=== PATIENT | female | born 1995 | race Caucasian/White ===

== ENCOUNTER 2024-10-15 21:32 | Emergency (ER) | payer OTHER, SELFPAY ==
--- NOTE | ~2024-10-15 | XR_ITS ---
CHEST RADIOGRAPH CLINICAL HISTORY: shortness of breath . COMPARISON: None available TECHNIQUE: Single portable view of the chest. FINDINGS The cardiomediastinal silhouette is unremarkable. Peribronchial thickening is identified. The lungs are otherwise clear. Visualized osseous structures and soft tissues are unremarkable. IMPRESSION: Peribronchial thickening, without focal infiltrate or effusion. Reviewed, dictated and finalized at location A. IN [place]
[2024-10-15 21:35] VITALS: BP 118/72; PULSE 90; RESP 15; O2SAT 100
--- NOTE | 2024-10-15 21:45 | ECG_ITS ---
Test Date: 2024-10-15 21:48:57 Measurements Intervals [place] Rate: 94 P: 147 AR: 124 QRS: 138 QRSD: 81 T: 151 QT: 314 QTc: 393 Interpretive Statements SINUS RHYTHM LEFT POSTERIOR FASCICULAR BLOCK [QRS AXIS > 109, INFERIOR Q] No previous ECG available for comparison Electronically Signed On 10-17-2024 08:58:05 EDITING INTERN by Eder Rascon M.D.
[2024-10-15 21:57] VITALS: PULSE 105; RESP 16
[2024-10-15] MEDS: IPRATROPIUM 0.5 MG/ALBUTEROL SULFATE 2.5 MG AMPUL.NEB 3 ML INHALATION (21:57)
[2024-10-15 22:02] VITALS: PULSE 94; RESP 16
[2024-10-15 22:05] LABS: Basophils Percent Auto 0.4 % (0.2-1.2); Eosinophils Absolute Auto 0.1 K/mm3 (0-0.3); Eosinophils Percent Auto 1.6 % (0-4.4); Hematocrit 36.7 % (37.0-47.0); Hemoglobin 12.7 g/dL (12.0-15.0); Immature Granulocyte Absolute 0.13 K/mm3 (0.00-0.031); Immature Granulocyte Percent A 1.9 % (0-0.5); Lymphocytes Absolute Auto 1.58 K/mm3 (0.9-3.2); Lymphocytes Percent Auto 22.8 % (18.3-44.2); Mean Corpuscular HGB Conc 34.6 g/dl (32-36); Mean Corpuscular Hemoglobin 31.8 pg (26-34); Mean Corpuscular Volume 91.8 fl (80-100); Mean Platelet Volume 9.6 fl (7.4-10.4); Monocytes Absolute Auto 0.7 K/mm3 (0.1-0.6); Monocytes Percent Auto 9.8 % (2.6-8.5); Neutrophils Absolute Auto 4.4 K/mm3 (1.3-6.7); Neutrophils Percent Auto 63.5 % (45.5-73.1); Platelet Count Result 277 k/mm3 (150-375); White Blood Count 6.9 K/mm3 (4.5-10.0)
[2024-10-15] MEDS: SODIUM CHLORIDE 0.9% IV 1,000 ML 999 ML IV CONT (22:05)
[2024-10-15] MEDS: methylPREDNISolone SOD SUCC 125 MG VIAL IV PUSH (22:05)
[2024-10-15 22:18] LABS: Lactic Acid Reflex 0.8 mmol/L (0.7-2.0)
[2024-10-15 22:19] LABS: Alanine Aminotransferase 20 U/L (6-35); Albumin Level 3.7 g/dL (3.5-5.1); Alkaline Phosphatase 107 U/L (38-126); Anion Gap 4 mmol/L (4-12); Aspartate Amino Transferase 24 U/L (14-36); Bilirubin,Total 0.4 mg/dL (0.2-1.3); Blood Urea Nitrogen 10 mg/dL (7-17); Calcium 9.1 mg/dL (8.4-10.2); Carbon Dioxide 25 mmol/L (22-30); Chloride 105 mmol/L (98-107); Estimated CRCL calculation 141 ml/min; Estimated Glomerular Filt Rate > 60; Glucose 92 mg/dL (65-110); Magnesium 1.8 mg/dL (1.6-2.3); Potassium 3.4 mmol/L (3.4-5.0); Sodium 134 mmol/L (137-145)
[2024-10-15 22:29] LABS: NT Pro B Type Natriuretic Pept 78 pg/mL (19.9-100); Strep Group A RT-PCR NOT DETECTED (Negative); Troponin I < 0.012 ng/mL (0.000-0.034)
[2024-10-15 22:41] LABS: Influenza A QL RT-PCR Positive (Negative); Influenza B QL RT-PCR Negative (Negative); RSV RNA, RT-PCR Negative (Negative); SARS-CoV-2 RNA PCR Negative (Negative)
--- NOTE | 2024-10-15 23:22 | ED_ITS ---
HPI - General Adult General Chief complaint: Shortness of Breath/Dyspnea Stated complaint: SOB Time Seen by Provider: 10/15/24 21:33 History of Present Illness HPI narrative: Patient 29-year-old female who presents emergency department with chief complaint of sore throat cough and shortness of breath. The patient reports that since the she has been having discomfort and cough the patient reports that she has taken Tylenol and reports that she lost her voice about 7 days ago the patient states she felt as though her throat was constricting the patient reports he is 29 weeks the patient states she has had no abdominal pain no loss of fluid Patient reports she felt as though she was wheezing using extra muscles whenever she was breathing Related Data Allergies Allergy/AdvReac Type Severity Reaction Status Date / Time No Known Allergies Allergy Verified 10/15/24 21:59 Review of Systems 2 Review of Systems: A 10 system review of systems was completed on the patient and is negative except for what is stated in the HPI. Nursing and ancillary documentation was reviewed. Exam 2 Narrative: GENERAL: Well-appearing, well-nourished, and in no acute distress. HEAD: Normocephalic, atraumatic. EYES: PERRLA and EOMI. ENT: Nares clear, no rhinorrhea or epistaxis. Mucous membranes moist. NECK: Supple. CHEST: Wheezing to auscultation. Mild respiratory distress. HEART: Regular rate and rhythm. No murmur heard. Normal peripheral pulses. ABDOMEN: Soft, nontender, nondistended, normal active bowel sounds. EXTREMITIES: Normal range of motion. No edema. SKIN: Warm, dry, no rash. NEURO: No focal deficits. Alert and oriented x3. PSYCH: Normal mood and affect. Course Vital Signs Vital signs: Vital Signs Pulse Rate 90 10/15/24 21:35 Respiratory Rate 15 10/15/24 21:35 Blood Pressure 118/72 10/15/24 21:35 Pulse Oximetry 100 10/15/24 21:35 Oxygen Delivery Room Air 10/15/24 21:35 Pulse Rate 94 10/15/24 22:02 Respiratory Rate 16 10/15/24 22:02 Blood Pressure 118/72 10/15/24 21:35 Pulse Oximetry 100 10/15/24 21:35 Oxygen Delivery Room Air 10/15/24 21:35 Medical Decision Making [facility] Narrative Medical decision making narrative: Differential diagnosis includes mono, strep, COVID, influenza, pneumonia, bronchospasm The patient was given IV steroids in the emergency department also given breathing treatments. Patient is feeling much better at this time The patient was positive for influenza A given the length of time that was discussed risk and benefits of Tamiflu the patient has decided that she would take a prescription for Tamiflu also patient will be started on a pulse dose steroids and given a prescription for an inhaler. Vital Signs Vital Signs: Vital Signs Pulse Rate 90 10/15/24 21:35 Respiratory Rate 15 10/15/24 21:35 Blood Pressure 118/72 10/15/24 21:35 Pulse Oximetry 100 10/15/24 21:35 Oxygen Delivery Room Air 10/15/24 21:35 Pulse Rate 94 10/15/24 22:02 Respiratory Rate 16 10/15/24 22:02 Blood Pressure 118/72 10/15/24 21:35 Pulse Oximetry 100 10/15/24 21:35 Oxygen Delivery Room Air 10/15/24 21:35 Lab Data 10/15/24 21:58 10/15/24 21:58 Labs: Lab Results 10/15/24 10/15/24 10/15/24 Range/Units 21:58 21:58 21:58 WBC 6.9 (4.5-10.0) K/mm3 RBC 4.00 L (4.2-5.4) M/mm3 Hgb 12.7 (12.0-15.0) g/dL Hct 36.7 L (37.0-47.0) % MCV 91.8 (80-100) fl MCH 31.8 (26-34) pg MCHC 34.6 (32-36) g/dl RDW 12.0 (11.5-14.5) % Plt Count 277 (150-375) k/mm3 MPV 9.6 (7.4-10.4) fl Immature Gran % (Auto) 1.9 H (0-0.5) % Neut % (Auto) 63.5 (45.5-73.1) % Lymph % (Auto) 22.8 (18.3-44.2) % [place] % (Auto) 9.8 H (2.6-8.5) % Eos % (Auto) 1.6 (0-4.4) % Baso % (Auto) 0.4 (0.2-1.2) % Lymph # (Auto) 1.58 (0.9-3.2) K/mm3 [place] # (Auto) 0.7 H (0.1-0.6) K/mm3 Eos # (Auto) 0.1 (0-0.3) K/mm3 Baso # (Auto) 0.0 (0.0-0.1) K/mm3 Abs Immat Gran (auto) 0.13 H (0.00-0.031) K/mm3 Absolute Neuts (auto) 4.4 (1.3-6.7) K/mm3 Absolute Nucleated RBC 0.000 (0.0-0.012) K/mm3 Nucleated RBC % 0.0 (0.0-0.2) % Sodium 134 L (137-145) mmol/L Potassium 3.4 (3.4-5.0) mmol/L Chloride 105 (98-107) mmol/L Carbon Dioxide 25 (22-30) mmol/L Anion Gap 4 (4-12) mmol/L BUN 10 (7-17) mg/dL Creatinine 0.56 L (0.7-1.0) mg/dL Estim Creat Clear Calc 141 ml/min Estimated GFR > 60 (59 - ) Glucose 92 (65-110) mg/dL Lactic Acid 0.8 (0.7-2.0) mmol/L Calcium 9.1 (8.4-10.2) mg/dL Magnesium 1.8 Cancelled (1.6-2.3) mg/dL Total Bilirubin 0.4 (0.2-1.3) mg/dL AST 24 (14-36) U/L ALT 20 (6-35) U/L Alkaline Phosphatase 107 (38-126) U/L Troponin I < 0.012 (0.000-0.034) ng/mL NT-Pro-B Natriuret Pep 78 Cancelled (19.9-100) pg/mL Total Protein 7.0 (6.3-8.2) g/dL Albumin 3.7 (3.5-5.1) g/dL Monoscreen Pending Influenza A (RT-PCR) Positive A (Negative) Influenza B (RT-PCR) Negative (Negative) RSV (RT-PCR) Negative (Negative) SARS-CoV-2 RNA (RT-PCR) Negative (Negative) Group A Strep (PCR) Not detected (Negative) Discharge Plan Discharge Clinical Impression: Influenza A, Acute bronchospasm Patient Disposition: Home, Self-Care Condition: Stable Instructions: Antibiotic Form, Influenza (ED), Acute Bronchitis (ED) Additional Instructions: Please follow-up with your primary care provider/OBGYN. If your symptoms worsen please return to the emergency department. Patient Language: Cam[place] Prescriptions: New albuterol sulfate 90 mcg/actuation HFA aerosol inhaler 2 puff inhalation QID PRN (Reason: shortness of breath or wheezing) Qty: 8.5 0RF prednisone 20 mg tablet 40 mg PO DAILY 5 Days Qty: 10 0RF oseltamivir [Tamiflu] 75 mg capsule 75 mg PO Q12H 5 Days Qty: 10 0RF Follow-up/Referrals: PHYSICIAN,SUPERVISOR PASTRY [Primary Care Provider] - Time of Disposition: 23:26
[2024-10-15 23:23] VITALS: BP 109/64; PULSE 87; RESP 14; TEMP 36.5; O2SAT 100
[2024-10-15 23:27] LABS: Monoscreen Negative (Negative); Negative Monotest Control Negative (Negative); Positive Monotest Control Positive (Positive)
== END 2024-10-16 00:10 | disposition home or self-care (01) ==
PROVIDERS: Emergency Provider Emergency Medicine
DX: J10.1 Influenza due to other identified influenza virus with other respiratory manifestations (principal); J98.01 Acute bronchospasm; Z20.822 Contact with and (suspected) exposure to COVID-19
CPT/HCPCS: 36415; 71045; 80053; 83605; 83735; 83880; 84484; 85025; 86308; 87637; 87651; 93005; 94640; 96361; 96374; 99284; J2919; J7030